=== PATIENT | male | born 1965 | race Caucasian/White ===

== ENCOUNTER 2017-06-27 07:00 | Day surgery (SDC) | payer OTHER ==
[2017-06-26 08:24] VITALS: BMI 32.8
--- NOTE | 2017-06-26 16:06 | HP ---
Admitting History and Physical - Admission Chief Complaint: Enlarged Neck Nodes History of Present Illness: 52 yo male with 2 month hx of multiple enlarged neck nodes, prior FNA biopsies inconclusive for diagnosis, though highly suspicious for Large Cell Lymphoma now for excisional biopsy History Source: Patient Limitations to Obtaining History: No Limitations - Past Medical History ENT: Yes: Other (adenopathy) - Past Surgical History Past Surgical History: Yes: None - Smoking History Smoking history: Current some day smoker Have you smoked in the past 12 months: Yes Aproximately how many cigarettes per day: 2 - Alcohol/Substance Use Hx Alcohol Use: Yes ("cutting down to a couple of beers a day) Home Medications - Allergies Allergies/Adverse Reactions: Allergies Allergy/AdvReac Type Severity Reaction Status Date / Time No Known Allergies Allergy Verified 06/26/17 08:24 - Home Medications Home Medications: Ambulatory Orders Ergocalciferol (Vitamin D2) [Vitamin D2] 2,000 unit PO DAILY 06/26/17 Review of Systems - Review of Systems Constitutional: reports: No Symptoms Eyes: reports: No Symptoms HENT: reports: No Symptoms Neck: reports: Lumps Cardiovascular: reports: No Symptoms Respiratory: reports: No Symptoms Gastrointestinal: reports: No Symptoms Neurological: reports: No Symptoms Physical Examination Constitutional: Yes: Well Nourished, No Distress Eyes: Yes: WNL HENT: Yes: WNL Neck: Yes: Lymphadenopathy Respiratory: Yes: Regular Musculoskeletal: Yes: WNL Neurological: Yes: Cran Nerves II-XII Intact Imaging - Results Cat Scan: Report Reviewed (Multiple levels of enlarged LNs with necrosis), Image Reviewed Problem List - Problems (1) Localized enlarged lymph nodes Assessment/Plan: Pt for excisional biopy of enlarged neck LN Code(s): R59.0 - LOCALIZED ENLARGED LYMPH NODES Assessment/Plan To OR for Lymph node biopsy
--- NOTE | 2017-06-27 07:54 | HP ---
History & Physical Update - History History: No Change - Physical Physical: No Change - Assessment Assessment: No Change - Plan Plan: No Change
[2017-06-27] MEDS ORDERED: LIDOCAINE HCL 0.5% EPINEPHRINE 1:200,000 50 ML VIAL IJ ONE (07:58)
[2017-06-27] MEDS ORDERED: MIDAZOLAM HCL 2 MG/2 ML SINGLE DOSE VIAL ONE ×3 (08:04→08:10)
[2017-06-27] MEDS ORDERED: SUCCINYLCHOLINE CHLORIDE 200 MG/10 ML VIAL ONE (08:09)
[2017-06-27] MEDS ORDERED: PROPOFOL 20 ML ONE (08:09)
[2017-06-27] MEDS ORDERED: ONDANSETRON 4 MG/2 ML VIAL IVPUSH PRN (08:28)
[2017-06-27] MEDS ORDERED: ACETAMINOPHEN 325 MG TABLET (FP) PO PRN (08:28)
[2017-06-27] MEDS ORDERED: PROMETHAZINE HCL 25 MG/1 ML VIAL IVPUSH PRN (08:28)
[2017-06-27] MEDS ORDERED: hydrALAZINE HCL 20 MG/ML VIAL ONE (08:56)
[2017-06-27 09:37] VITALS: TEMP 98.5
[2017-06-27 11:20] VITALS: BP 136/84; PULSE 92
[2017-06-27] MEDS ORDERED: hydrALAZINE HCL 20 MG/ML VIAL IVPUSH ONE (11:59)
--- NOTE | 2017-06-27 13:37 | OP ---
DATE OF OPERATION: 06/27/2017 PREOPERATIVE DIAGNOSES: Multiple enlarged neck lymph nodes. POSTOPERATIVE DIAGNOSES: Multiple enlarged neck lymph nodes. PROCEDURE: Excisional lymph node biopsy of the neck. ANESTHESIA: MAC with local. Dr. Bina Bonilla. FINDINGS: Multiple matted nodes with necrosis. INDICATION: The patient is a 52-year-old male with a 6-week history of multiple enlarged necrotic matted nodes throughout all compartments of his neck. Attempts at fine needle aspiration have been diagnostic with the need of more tissue. Patient now presents for excisional biopsy. Risks were thoroughly discussed and a lymph node in the posterior neck was chosen as the most superficial and accessible. PROCEDURE: After obtaining informed consent patient was brought to the operating room and placed on the operating room table in the supine position, after placement of anesthesia monitoring IV sedation was given. A local was injected after prepping the neck and identifying the lymph node region. After allowing time to make anesthesia take affect a #15 blade was used to make an incision over the lymph nodes in the posterior mid triangle. Dissection was carried down through soft tissue. Significant fibrosis was encountered in the deeper dermis. A matted group of lymph nodes were identified. As attempted isolation of a complete lymph node was performed the node was quite necrotic and soft. Multiple portions of tissue were removed via sharp dissection piecemeal and sent to the laboratory. This was sent fresh to rule out likely lymphoma. Wound was then closed with a 4-0 deep chromic stitch and closed by 4-0 nylon running suture. A compression dressing was placed. The patient then was awoke from anesthesia and transferred to recovery room awake, alert in stable condition. Yenni [id number]
--- NOTE | 2017-06-30 18:22 | PATH ---
Surgical Pathology Report Patient Name: BRADEN ZALDIVAR [facility]. Rec. #: [id number] /Age/Gender: 1965 (Age: 52) / M Account: [id number] Location: [facility] SURGICAL Taken: 06/27/2017 Received: 06/27/2017 Reported: 06/30/2017 Physicians: Humza Henry M.D. Specimen(s) Received LEFT NECK LYMPH NODE Clinical History Enlarged lymph nodes. Prior FNA with lymphoproliferative disorder enlarged B cells, rule out lymphoma. Intraoperative Consult Diagnosis Left neck lymph node, touch prep: Scant lymphoid cells present. Dr. Sanders, June 27, 2017 Final Diagnosis LYMPH NODE, LEFT NECK, EXCISION: LARGE B-CELL LYMPHOMA WITH AGGRESSIVE FEATURES, WITH EXTENSIVE NECROSIS (SEE COMMENT) Comment: Sections reveal lymphoid tissue with replacement of the normal lymphoid population by a proliferation of large neoplastic cells, with extensive areas of necrosis. Flow cytometry performed and interpreted at [place], [place] ([id number]) had to be canceled due to low cell viability. Hematopathology consultation with immunohistochemistry by Dr. Maxim Cota at [place], [place] ([id number]) shows the neoplastic cells to demonstrate B cell origin, with coexpression of CD20 (focal), PAX-5, BCL-2 (dim) and CD10. The cells also stain for CD79a, with focal dim positivity of undetermined significance (cannot rule out artifact) with TdT. Ki67 shows a very high proliferative rate (greater than 90%). The immunophenotype is consistent with germinal center cell (GCC) origin of the neoplasm. The neoplasm has a very high proliferative rate, which may be associated with more aggressive clinical behavior. Additional FISH studies to rule out "double-hit" lymphoma are pending, and a report will follow. This case was discussed with Dr. Henry on June 30, 2017. Electronically Signed Jake Sanders M.D. 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 The BCL6 (3q27) rearrangement is not detected. The IGH/BCL2 t(14;18) translocation is not detected. Comment: One copy of BCL6(3q27) is seen in 30% of cells. Three copies of BCL2(18q21) are seen in 40% of cells. Dony Lopez M.D. Gross Description The specimen is received fresh labeled "biopsy of lymph node left neck" and is 3 separate pieces of jordan tissue measuring 1.2 x 0.6 x 0.4 cm, 1.0 x 0.7 x 0.3 cm, and 0.8 x 0.4 x 0.3 cm. Touch preps are prepared. After examination of the touch preps, Dr. Henry indicated that no additional tissue could be obtained. A outside sales representative portion is submitted for flow cytometry. All of the remaining tissue is submitted in one cassette for permanent section. [facility]/06/27/2017 [facility]06/27/2017
== END 2017-06-27 11:10 | disposition home or self-care (01) ==
LOC: JASU-SURG 07:00
PROVIDERS: ATTEND Otolaryngology
PROC: 07B10ZX Excision of Right Neck Lymphatic, Open Approach, Diagnostic (ICD-10-PCS; principal; 2017-06-27 08:00)
DX: R59.0 Localized enlarged lymph nodes (principal)
CPT/HCPCS: 88305-TC; 88329; 94760

== ENCOUNTER 2017-08-31 13:20 | Inpatient (IN) | payer OTHER ==
[2017-08-31] MEDS ORDERED: SODIUM CHLORIDE 1,000 ML IV STA ×2 (14:39→20:31)
--- NOTE | 2017-08-31 15:25 | PDOC ---
History of Present Illness <Kathia Desai - Last Filed: 08/31/17 19:23> - General History Source: Patient Exam Limitations: No Limitations - History of Present Illness Initial Comments: 08/31/17 15:19 52 y.o. M with pmhy of HTN and nonhodgkins lymphoma presenting with hypotension. Patient was recently diagnosed in June with NHL and was in the hospital at [facility] for 19 days for chemotherapy. Patient was discharged on August 28. Visiting nurse services came by today and noted his BP to be 66/47 with a HR of 101. Patient was sent to the ER by Dr. Tyson, his oncologist. Patient states for the past few days he has occasional episodes of lightheadedness when he stands up or walks long distances. Patient denies fever, chills, chest pain, shortness of breath, n/v/d/c, abdominal pain, dysuria, hematuria. PSH- denies all- nkda sh- denies PCP- Dr. Tyson <Jevon Steele - Last Filed: 09/01/17 07:09> - General Chief Complaint: Blood Pressure Problem Stated Complaint: LOW BP Time Seen by Provider: 08/31/17 14:10 Past History <Kathia Desai - Last Filed: 08/31/17 19:23> - Past Medical History Anemia: No Asthma: No Cancer: No Cardiac Disorders: No CVA: No COPD: No CHF: No Dementia: No Diabetes: No GI Disorders: No Disorders: No HTN: Yes Hypercholesterolemia: No Liver Disease: No Seizures: No Thyroid Disease: No Other medical history: LYMPHOMA - Immunization History Immunization Up to Date: Yes - Suicide/Smoking/Psychosocial Hx Smoking History: Former smoker Have you smoked in the past 12 months: Yes Number of Cigarettes Smoked Daily: 2 If you are a former smoker, when did you quit?: 1YR Information on smoking cessation initiated: No Hx Alcohol Use: No Drug/Substance Use Hx: No Substance Use Type: None <Jevon Steele - Last Filed: 09/01/17 07:09> - Past Medical History Allergies/Adverse Reactions: Allergies Allergy/AdvReac Type Severity Reaction Status Date / Time No Known Allergies Allergy Verified 08/31/17 13:29 Home Medications: Ambulatory Orders Allopurinol 300 mg PO DAILY 08/31/17 Docusate Sodium [Colace -] 100 mg PO TID 08/31/17 Heparin - 5,000 unit SQ Q8H-IV #1 vial 08/31/17 Levofloxacin [Levaquin] 500 mg PO DAILY 08/31/17 Loratadine 10 mg PO DAILY 08/31/17 Oxycodone HCl 5 mg PO QID PRN 08/31/17 Pantoprazole Sodium 40 mg PO DAILY 08/31/17 Piperacillin Sodium/Tazobactam [Piperacil-Tazobact 4.5 gm Vial] 4.5 gm IV Q6H Sodium Chloride [Normal Saline -] 1,000 ml IV ASDIR #1 bag 08/31/17 Sulfamethoxazole/Trimethoprim [Sulfamethoxazole-Tmp Ds Tablet] 1 each PO ASDIR 08/31/17 Tbo-Filgrastim [Granix] 480 mcg SQ ASDIR 08/31/17 Valacyclovir HCl [Valtrex -] 500 mg PO BID 08/31/17 Review of Systems - Review of Systems Able to Perform ROS?: Yes Comments:: 08/31/17 15:25 GENERAL/CONSTITUTIONAL: No fever or chills. No weakness. HEAD, EYES, EARS, NOSE AND THROAT: No change in vision. No ear pain or discharge. No sore throat. CARDIOVASCULAR: No chest pain or shortness of breath RESPIRATORY: No cough, wheezing, or hemoptysis. GASTROINTESTINAL: No nausea, vomiting, diarrhea or constipation. GENITOURINARY: No dysuria, frequency, or change in urination. MUSCULOSKELETAL: No joint or muscle swelling or pain. No neck or back pain. SKIN: No rash NEUROLOGIC: No headache, vertigo, loss of consciousness, or change in strength/ sensation. +lightheadedness ENDOCRINE: No increased thirst. No abnormal weight change HEMATOLOGIC/LYMPHATIC: No anemia, easy bleeding, or history of blood clots. ALLERGIC/IMMUNOLOGIC: No hives or skin allergy. <Jevon Steele - Last Filed: 09/01/17 07:09> *Physical Exam - Vital Signs Last Vital Signs Temp Pulse Resp BP Pulse Ox 98.0 F 92 H 18 101/69 100 08/31/17 13:29 08/31/17 14:46 08/31/17 14:46 08/31/17 14:46 08/31/17 14:46 <Kathia Desai - Last Filed: 08/31/17 19:23> - Vital Signs Last Vital Signs Temp Pulse Resp BP Pulse Ox 98.0 F 92 H 18 101/69 100 08/31/17 13:29 08/31/17 14:46 08/31/17 14:46 08/31/17 14:46 08/31/17 14:46 - Physical Exam Comments: 08/31/17 15:25 GENERAL: Awake, alert, and fully oriented, in no acute distress HEAD: No signs of trauma, normocephalic, atraumatic EYES: PERRLA, EOMI, sclera anicteric, conjunctiva clear ENT: Auricles normal inspection, hearing grossly normal, nares patent, oropharynx clear without exudates. Moist mucosa NECK: Normal ROM, supple, no lymphadenopathy, JVD, or masses LUNGS: No distress, speaks full sentences, clear to auscultation bilaterally HEART: Regular rate and rhythm, normal S1 and S2, no murmurs, rubs or gallops, peripheral pulses normal and equal bilaterally. ABDOMEN: Soft, nontender, normoactive bowel sounds. No guarding, no rebound. No masses EXTREMITIES: Normal inspection, Normal range of motion, no edema. No clubbing or cyanosis. NEUROLOGICAL: Cranial nerves II through XII grossly intact. Normal speech, normal gait, no focal sensorimotor deficits SKIN: Warm, Dry, normal turgor, no rashes or lesions noted. <Jevon Steele - Last Filed: 09/01/17 07:09> ED Treatment Course - LABORATORY CBC & Chemistry Diagram: 08/31/17 14:52 08/31/17 14:52 - ADDITIONAL ORDERS Additional order review: Laboratory Results 08/31/17 08/31/17 08/31/17 16:52 16:52 16:52 PT with INR 12.30 H INR 1.09 PTT (Actin FS) 29.1 Sodium Potassium Chloride Carbon Dioxide Anion Gap BUN Creatinine Creat Clearance w eGFR Random Glucose Lactic Acid 1.5 Calcium Total Bilirubin AST ALT Alkaline Phosphatase Creatine Kinase Troponin I Total Protein Albumin Urine Color Straw Urine Appearance Clear Urine pH 5.0 Urine Protein Negative Urine Glucose (UA) 1+ H Urine Ketones Negative Urine Blood Negative Urine Nitrite Negative Urine Bilirubin Negative Urine Urobilinogen Negative 08/31/17 08/31/17 14:52 14:52 PT with INR INR PTT (Actin FS) Sodium 134 L Potassium 4.6 Chloride 97 L Carbon Dioxide 27 Anion Gap 10 BUN 39 H Creatinine 2.7 H Creat Clearance w eGFR 25.14 Random Glucose 100 Lactic Acid Calcium 9.0 Total Bilirubin 0.4 AST 34 ALT 26 Alkaline Phosphatase 108 Creatine Kinase 98 Troponin I < 0.02 Total Protein 6.9 Albumin 3.2 L Urine Color Urine Appearance Urine pH Urine Protein Urine Glucose (UA) Urine Ketones Urine Blood Urine Nitrite Urine Bilirubin Urine Urobilinogen 08/31/17 14:52 RBC 4.31 MCV 88.9 MCHC 34.2 RDW 12.5 MPV 9.7 Neutrophils % No Result Required. Lymphocytes % No Result Required. - Medications Given in the ED: ED Medications Discontinued Medications Generic Name Dose Route Start Last Admin Trade Name Freq PRN Reason Stop Dose Admin Sodium Chloride 1,000 mls @ 1,000 mls/hr 08/31/17 14:39 08/31/17 15:11 Normal Saline - IV 08/31/17 15:38 1,000 mls/hr ASDIR STA Administration Vancomycin HCl 1,000 mg 08/31/17 16:46 08/31/17 17:40 Vancomycin (Pre-Docked) IVPB 08/31/17 16:47 1,000 mg ONCE ONE Administration Protocol <Kathia Desai - Last Filed: 08/31/17 19:23> - LABORATORY CBC & Chemistry Diagram: 08/31/17 14:52 08/31/17 14:52 <Jevon Steele - Last Filed: 09/01/17 07:09> Medical Decision Making - Medical Decision Making 08/31/17 15:25 52 y.o. M with pmh of htn and NHL presenting with hypotension Given hx/pe, CBC, CMP, ekg, troponin, IVF (NS) 08/31/17 16:57 WBC- 23 Creatinine-2.[address] Tyson. Dr. Tyson concerned for acute infection. Patient to undergo cxr, ua, ucx, bcx, vancomycin and zosyn. 08/31/17 17:29 Patient wants to be transferred to [facility] for care. Call placed to Dr. Tyson. ([phone]) Awaiting call back 08/31/17 17:[address] Desai, awaiting transfer acceptance 08/31/17 19:03 Patient signed out to Dr. Judd <Jevon Steele - Last Filed: 09/01/17 07:09> *DC/Admit/Observation/Transfer - Discharge Dispostion Admit: Yes <Kathia Desai - Last Filed: 08/31/17 19:23> <Jevon Steele - Last Filed: 09/01/17 07:09> Diagnosis at time of Disposition: Sepsis Qualifiers: Sepsis type: sepsis due to unspecified organism Qualified Code(s): A41.9 - Sepsis, unspecified organism - Discharge Dispostion Disposition: TRANSFER ACUTE CARE/OTHER HOSP Condition at time of disposition: Guarded
[2017-08-31 15:28] LABS: MCH 30.4 pg (25.7-33.7); MCHC 34.2 g/dl (32.0-35.9); MEAN CELL VOLUME 88.9 fl (80-96); MEAN PLT VOLUME 9.7 fl (7.5-11.1); PLATELET COUNT 140 K/MM3 (134-434); RDW 12.5 % (11.9-15.9); WHITE BLOOD COUNT 23.2 K/mm3 (4.0-10.0)
[2017-08-31 15:40] LABS: ALBUMIN 3.2 g/dl (3.4-5.0); ANION GAP 10 (8-16); BILIRUBIN,TOTAL 0.4 mg/dL (0.2-1.0); CO2 27 mmol/L (21-32); CREATININE 2.7 mg/dL (0.7-1.3); GLUCOSE,RANDOM 100 mg/dL (74-106); SGPT/ALT 26 U/L (12-78)
[2017-08-31 15:41] LABS: ALK PHOS 108 U/L (45-117); TOT PROT 6.9 g/dl (6.4-8.2); TROPONIN I < 0.02 ng/ml (0.00-0.05)
[2017-08-31 15:43] LABS: SGOT/AST 34 U/L (15-37)
[2017-08-31 15:44] LABS: CPK 98 IU/L (39-308)
--- NOTE | 2017-08-31 15:49 | PDOC ---
Attending Attestation - HPI HPI: 08/31/17 15:49 The patient is a 52 year old M with recently diagnosed with lymphoma. The patient is just out of the hospital after a 19 day admission in [facility] , here today with c/os of low BP. Patient is currently taking losartan 100mg and hydrochlorothiazide 25mg . Patient notes while in the hospital having continuing low BP reading around 100/60. Today the patients visiting nurse notes his BP being 66/46 with a HR 101. He arrives eating and drinking okay and with complaints of lightheadedness. He notes both intentional and unintentional weight loss of about 40 pounds per the past year after being dx with HTN. He denies any recent fevers, chills, headache or dizziness. He denies any recent nausea, vomit, diarrhea or constipation. He denies any recent chest pain or shortness of breath. He denies any recent dysuria, frequency, urgency or hematuria. [phone] Oncologist 08/31/17 15:50 - Physicial Exam PE: 08/31/17 15:49 GENERAL: Awake, alert, and fully oriented, in no acute distress HEAD: No signs of trauma EYES: PERRLA, EOMI, sclera anicteric, conjunctiva clear ENT: Auricles normal inspection, hearing grossly normal, nares patent, Moist mucosa NECK: Normal ROM, supple, JVD, or masses LUNGS: Breath sounds equal, clear to auscultation bilaterally. No wheezes, and no crackles HEART: Regular rate and rhythm, normal S1 and S2, no murmurs, rubs or gallops ABDOMEN: Soft, nontender, normoactive bowel sounds. No guarding, no rebound. No masses EXTREMITIES: Normal range of motion, no edema. No clubbing or cyanosis. No cords, erythema, or tenderness. 2+DP/PT pulses. NEUROLOGICAL: Normal speech, normal gait, moves all extremities equally. Speech clear. SKIN: Warm, Dry, normal turgor, no rashes or lesions noted. 08/31/17 15:50 Documentation prepared by Gio Osorio, acting as medical office technician for Kathia Desai MD. <Gio Osorio - Last Filed: 08/31/17 15:50> - Resident Resident Name: Jevon Steele - ED Attending Attestation I have performed the following: I have examined & evaluated the patient, The case was reviewed & discussed with the resident, I agree w/resident's findings & plan, Exceptions are as noted - HPI HPI: 08/31/17 15:46 - Physicial Exam PE: 08/31/17 15:48 . - Medical Decision Making 08/31/17 15:48 52 yo NHL, hypertension s/p chemo dc 'd 19 days ago, with low bp. differential: dehydration, anemia, electorlyte abnormality, infection although pt afebrile. vimal tolliver dc bp medication, labs iv hydration reassess. will d/w pt oncologist. 08/31/17 17:24pt with elevated wbc. d/w his oncologist dr. wise would like pt to be admitted r/o infection. margaretho jass given. possible source picc line. would like pt transfered to [facility], . he is calling transfer center at [phone] -[facility] STAT <Kathia Desai - Last Filed: 08/31/17 19:23>
[2017-08-31] MEDS ORDERED: VANCOMYCIN 1 GRAM (PRE-DOCKED) 1,000 MG/250 ML BAG IVPB ONE (16:46)
[2017-08-31] MEDS ORDERED: PIPERACILLIN/TAZOB 4.5 GM/100 ML PRE-DOCKED IVPB ONE (16:46)
[2017-08-31 17:15] LABS: PLATELET ESTIMATE ADEQUATE (NORMAL); TOTAL CELLS COUNTED 100
[2017-08-31 17:15] LABS: INR 1.09 (0.82-1.09); PROTHROMBIN TIME (PATIENT) 12.3 SEC (9.98-11.88)
[2017-08-31 17:16] LABS: METAMYELOCYTE 6 % (0-2); MYELOCYTE 10 % (0-2); NUCLEATED RED BLOOD CELL 1 % (0-0); PROMYELOCYTE 4 % (0-2); REACTIVE LYMPHOCYTES 4 % (0-80)
[2017-08-31 17:17] LABS: ACTIVATED PTT 29.1 SECONDS (26.9-34.4)
[2017-08-31] MEDS ORDERED: VANCOMYCIN 1 GRAM (PRE-DOCKED) 250 ML IVPB ONE (17:32)
[2017-08-31] MEDS ORDERED: PIPERACILLIN/TAZOB 4.5 GM 100 ML IVPB ONE (17:32)
--- NOTE | 2017-08-31 19:05 | PDOC ---
*Physical Exam - Vital Signs Last Vital Signs Temp Pulse Resp BP Pulse Ox 98.0 F 92 H 18 101/69 100 08/31/17 13:29 08/31/17 14:46 08/31/17 14:46 08/31/17 14:46 08/31/17 14:46 ED Treatment Course - LABORATORY CBC & Chemistry Diagram: 08/31/17 14:52 08/31/17 14:52 - ADDITIONAL ORDERS Additional order review: Laboratory Results 08/31/17 08/31/17 08/31/17 16:52 16:52 14:52 PT with INR 12.30 H INR 1.09 PTT (Actin FS) 29.1 Sodium Potassium Chloride Carbon Dioxide Anion Gap BUN Creatinine Creat Clearance w eGFR Random Glucose Lactic Acid 1.5 Calcium Total Bilirubin AST ALT Alkaline Phosphatase Creatine Kinase 98 Troponin I < 0.02 Total Protein Albumin 08/31/17 14:52 PT with INR INR PTT (Actin FS) Sodium 134 L Potassium 4.6 Chloride 97 L Carbon Dioxide 27 Anion Gap 10 BUN 39 H Creatinine 2.7 H Creat Clearance w eGFR 25.14 Random Glucose 100 Lactic Acid Calcium 9.0 Total Bilirubin 0.4 AST 34 ALT 26 Alkaline Phosphatase 108 Creatine Kinase Troponin I Total Protein 6.9 Albumin 3.2 L 08/31/17 14:52 RBC 4.31 MCV 88.9 MCHC 34.2 RDW 12.5 MPV 9.7 Neutrophils % No Result Required. Lymphocytes % No Result Required. - Medications Given in the ED: ED Medications Discontinued Medications Generic Name Dose Route Start Last Admin Trade Name Freq PRN Reason Stop Dose Admin Sodium Chloride 1,000 mls @ 1,000 mls/hr 08/31/17 14:39 08/31/17 15:11 Normal Saline - IV 08/31/17 15:38 1,000 mls/hr ASDIR STA Administration Vancomycin HCl 1,000 mg 08/31/17 16:46 08/31/17 17:40 Vancomycin (Pre-Docked) IVPB 08/31/17 16:47 1,000 mg ONCE ONE Administration Protocol Medical Decision Making - Medical Decision Making 08/31/17 19:06 Care taken over from Dr. Steele. *DC/Admit/Observation/Transfer Diagnosis at time of Disposition: Sepsis Qualifiers: Sepsis type: sepsis due to unspecified organism Qualified Code(s): A41.9 - Sepsis, unspecified organism; A41.9 - Sepsis, unspecified organism; A41.9 - Sepsis, unspecified organism
[2017-08-31 19:11] LABS: URINE APPEARANCE CLEAR; URINE BILIRUBIN NEGATIVE (NEGATIVE); URINE BLOOD NEGATIVE (NEGATIVE); URINE COLOR STRAW; URINE GLUCOSE (UA) 1+ (NEGATIVE); URINE KETONE NEGATIVE (NEGATIVE); URINE NITRITE NEGATIVE (NEGATIVE); URINE PROTEIN NEGATIVE (NEGATIVE); URINE UROBILINOGEN NEGATIVE mg/dL (0.2-1.0)
--- NOTE | 2017-08-31 20:31 | HP ---
CHIEF COMPLAINT:Sent by VNS for low BP PCP: Dr. Burnett [phone]-oncologist HISTORY OF PRESENT ILLNESS: 52M PMH of HTN HLD "B-Cell Lymphoma with characteristics of leukemia" per patient presents to the ED after VNS visited him today and noted his BP to be in the 66/46. His Oncologist was called and was concerned for sepsis and told him to go to the nearest emergency room. patient states he has been having some lightheadedness over the past 2 days. He also notes this morning and yesterday morning he had some gassy abdominal pain which was very bothersome and lasted for 10 minutes and went away. Patient states he was started on BP meds in may of this year prior to that he wasn't on any medications. He believes his baseline SBP is arounf 100. He believes he is on too high of a dose as he gets dizzy when walking sometimes after taking them. The patient is just out of the [facility] hospital after a 19 day admission in [facility] for inpatient chemotherapy. Patient had his first cycle there and had 5 doses total. He was also worked up with a bone marrow biopsy pet scans and brain MRI which were negative. he was told his malignancy is mostly limited to his neck. He was diagnosed due to neck fullness but was otherwise asymptomatic. Patient was diagnosed with a lymph node biopsy done from his neck. Patient is currently taking losartan 100mg and hydrochlorothiazide 25mg. He states he has had good oral intake and he believes he is hydrating himself appropriately. He notes both intentional and unintentional weight loss of about 40 pounds per the past year after being dx with HTN. He denies any recent fevers, chills, headache or dizziness. He denies any recent nausea, vomit, diarrhea or constipation. He denies any recent chest pain or shortness of breath. He denies any recent dysuria, frequency, urgency or hematuria. In the ED he was noted to have a clear CXR. NSR EKG DILAN normal lactic acid and leukocytosis. He states he believes his WBC count was 4 when he was discharged from [facility]. BP came up SBP 100 's after IVF bolus. Patient is awaiting transfer to [facility], Has been accepetd but no beds. ER course was notable for: (1) Labs CXR (2)FLuids (3)ABx Recent Travel:Denies PAST MEDICAL HISTORY:HTN HLD not on meds B-cell lymphoma with characteristics of leukemia PAST SURGICAL HISTORY:Lymphnode excision Social History: Smoking:former social smoker Alcohol:denies Drugs: denies Family History: Allergies No Known Allergies Allergy (Verified 08/31/17 13:29) HOME MEDICATIONS: Home Medications Medication Instructions Recorded Allopurinol 300 mg PO DAILY 08/31/17 Docusate Sodium [Colace -] 100 mg PO TID 08/31/17 Hydrochlorothiazide 25 mg PO DAILY 08/31/17 Levofloxacin [Levaquin] 500 mg PO DAILY 08/31/17 Loratadine 10 mg PO DAILY 08/31/17 Losartan Potassium 100 mg PO DAILY 08/31/17 Oxycodone HCl 5 mg PO QID PRN 08/31/17 Pantoprazole Sodium 40 mg PO DAILY 08/31/17 Piperacillin Sodium/Tazobactam 4.5 gm IV Q6H 08/31/17 [Piperacil-Tazobact 4.5 gm Vial] Sulfamethoxazole/Trimethoprim 1 each PO ASDIR 08/31/17 [Sulfamethoxazole-Tmp Ds Tablet] Tbo-Filgrastim [Granix] 480 mcg SQ ASDIR 08/31/17 Valacyclovir HCl [Valtrex -] 500 mg PO BID 08/31/17 REVIEW OF SYSTEMS CONSTITUTIONAL: Absent: fever, chills, diaphoresis, generalized weakness, malaise, loss of appetite, Present: 40lb weight loss some intentional some unintentional. HEENT: Absent: rhinorrhea, nasal congestion, throat pain, throat swelling, difficulty swallowing, mouth swelling, ear pain, eye pain, visual changes CARDIOVASCULAR: Absent: chest pain, syncope, palpitations, irregular heart rate, peripheral edema Present: lightheadedness RESPIRATORY: Absent: cough, shortness of breath, dyspnea with exertion, orthopnea, wheezing, stridor, hemoptysis GASTROINTESTINAL: Absent: abdominal pain, abdominal distension, nausea, vomiting, diarrhea, constipation, melena, hematochezia GENITOURINARY: Absent: dysuria, frequency, urgency, hesitancy, hematuria, flank pain, genital pain MUSCULOSKELETAL: Absent: myalgia, arthralgia, joint swelling, back pain, neck pain SKIN: Absent: rash, itching, pallor HEMATOLOGIC/IMMUNOLOGIC: Absent: easy bleeding, easy bruising, lymphadenopathy, frequent infections ENDOCRINE: Absent: unexplained weight gain, unexplained weight loss, heat intolerance, cold intolerance NEUROLOGIC: Absent: headache, focal weakness or paresthesias, dizziness, unsteady gait, seizure, mental status changes, bladder or bowel incontinence PSYCHIATRIC: Absent: anxiety, depression, suicidal or homicidal ideation, hallucinations. PHYSICAL EXAMINATION Vital Signs - 24 hr 08/31/17 08/31/17 08/31/17 13:29 14:46 20:18 Temperature 98.0 F Pulse Rate 100 H Pulse Rate [ 92 H 80 Apical] Respiratory 16 18 18 Rate Blood Pressure 79/45 Blood Pressure 101/69 125/75 [Left Arm] O2 Sat by Pulse 100 100 96 Oximetry (%) GENERAL: Awake, alert, and fully oriented, in no acute distress. HEAD: Normal with no signs of trauma. EYES: Pupils equal, round and reactive to light, extraocular movements intact EARS, NOSE, THROAT: Dry mucous membranes. NECK: Normal range of motion, supple, no JVD, patient has right sided neck lymphadenopathy/mass has been there since before biopsy. Actually is the site of biopsy. LUNGS: Breath sounds equal, clear to auscultation bilaterally. No wheezes, and no crackles. No accessory muscle use. HEART: Regular rate and rhythm, normal S1 and S2 without murmur ABDOMEN: Soft, nontender, not distended, normoactive bowel sounds, no guarding, no rebound. no masses felt MUSCULOSKELETAL: Normal range of motion at all joints. No bony deformities or tenderness. No CVA tenderness. UPPER EXTREMITIES: warm, well-perfused. No peripheral edema. LOWER EXTREMITIES: warm, well-perfused. No calf tenderness. No peripheral edema. NEUROLOGICAL: Cranial nerves II-XII intact. Normal speech. Normal gait. PSYCHIATRIC: Cooperative. Good eye contact. Appropriate mood and affect. SKIN: Warm, dry. PICC line insertion site clean dry no erythema no tenderness no fluctuance or cord like lesions. Right sided chemoport also has no tenderness erythema or underlying fluctuance Laboratory Results - last 24 hr 08/31/17 08/31/17 08/31/17 14:52 14:52 14:52 WBC 23.2 H RBC 4.31 Hgb 13.1 Hct 38.3 MCV 88.9 MCH 30.4 MCHC 34.2 RDW 12.5 Plt Count 140 MPV 9.7 Total Counted 100 Neutrophils % No Result Required. Neutrophils % (Manual) 26 L Band Neuts % (Manual) 22 H Lymphocytes % No Result Required. Lymphocytes % (Manual) 7 L Monocytes % (Manual) 21 H* Myelocytes % (Man) 10 H Promyelocytes % (Man) 4 H Nucleated RBC % 1 H Other Cell Type Platelet Estimate Adequate PT with INR INR PTT (Actin FS) Sodium 134 L Potassium 4.6 Chloride 97 L Carbon Dioxide 27 Anion Gap 10 BUN 39 H Creatinine 2.7 H Creat Clearance w eGFR 25.14 Random Glucose 100 Lactic Acid Calcium 9.0 Total Bilirubin 0.4 AST 34 ALT 26 Alkaline Phosphatase 108 Creatine Kinase 98 Troponin I < 0.02 Total Protein 6.9 Albumin 3.2 L Urine Color Urine Appearance Urine pH Urine Protein Urine Glucose (UA) Urine Ketones Urine Blood Urine Nitrite Urine Bilirubin Urine Urobilinogen 08/31/17 08/31/17 08/31/17 16:52 16:52 16:52 WBC RBC Hgb Hct MCV MCH MCHC RDW Plt Count MPV Total Counted Neutrophils % Neutrophils % (Manual) Band Neuts % (Manual) Lymphocytes % Lymphocytes % (Manual) Monocytes % (Manual) Myelocytes % (Man) Promyelocytes % (Man) Nucleated RBC % Other Cell Type Platelet Estimate PT with INR 12.30 H INR 1.09 PTT (Actin FS) 29.1 Sodium Potassium Chloride Carbon Dioxide Anion Gap BUN Creatinine Creat Clearance w eGFR Random Glucose Lactic Acid 1.5 Calcium Total Bilirubin AST ALT Alkaline Phosphatase Creatine Kinase Troponin I Total Protein Albumin Urine Color Straw Urine Appearance Clear Urine pH 5.0 Urine Protein Negative Urine Glucose (UA) 1+ H Urine Ketones Negative Urine Blood Negative Urine Nitrite Negative Urine Bilirubin Negative Urine Urobilinogen Negative CXR: Clear. No acute pathology. Lines in place EKG: NSR no ST changes normal axis ASSESSMENT/PLAN: 52M with history of HTN HLD and lymphoma/leukemia presents to the ED with hypotension found to have leukocytosis and DILAN concern for sepsis. Patient could also have underlying tumor lysis syndrome. symptomatic hypotension: patient could be hypotensive from volume depletion as he is dry and hyponatremic. Given his leukocytosis patient could also be from sepsis. Admit to med/surg BP improved with IVF continue IVF bolus then maintenance Strict I/Os Sepsis/leukocytosis/Bandemia: Unknown source at this time could be PICC or chemoport but does not seem like it on physical exam f/u blood cultures f/u UCx fluid resuscitation ID consult given Vanco/zosyn BY ED Trend CBC Acute kidney injury:Patient denies a history of CKD. Likely from pre-renal causes secondary to poor flow to the kidney from sepsis vs volume depletion. tumor lysis syndrome unlikely as patient does not have hyperkalmeia hypocalcemia lactic acidosis and CPK is WNL Will check uric acid phosphate and LDH continue allopurinol Continue IVF recheck BMP Avoid nephrotoxic drugs renally dose all meds Hold losartan and HCTZ consider renal ultrasound/renal consult of does not improve B Cell Lymphoma/leukemia: Pending transfer to [facility] per patient and PMD/Oncologist's request recently completed first cycle of chemotherapy if stays will consider heme/onc consult Patient on levaquin bactrim and valtrex will hold until ID sees patient. no longer on granix continue allopurinol HTN: Hold losartan and HCTZ will need meds adjusted as he gets lightheadedness when ambulating after taking them most days HLD: Not on meds outpatient follow up constipation: Continue stool softeners FEN: NS 1 liter bolus then NS @ 125ml/hr hyponatremia Sodium controlled diet PPx: HSQ/SCDs/Ambulate Protonix PO Patient is ambulating and does not need PT consult Transfer to [facility] when bed available-likely tomorrow AM per transfer center. Case discussed with attending Dr. Tanner Visit type - Emergency Visit Emergency Visit: Yes Care time: The patient presented to the Emergency Department on the above date and was hospitalized for further evaluation of their emergent condition. - New Patient This patient is new to me today: Yes Date on this admission: 08/31/17 - Critical Care Critical Care patient: No
[2017-08-31] MEDS ORDERED: SODIUM CHLORIDE 1,000 ML IV SCH (20:45)
[2017-08-31 21:05] VITALS: BMI 30.9
--- NOTE | 2017-08-31 21:12 | PN ---
Teaching Attending Note Name of Resident: Bautista Jimenez ATTENDING PHYSICIAN STATEMENT I saw and evaluated the patient. I reviewed the resident's note and discussed the case with the resident. I agree with the resident's findings and plan as documented. SUBJECTIVE: 52 year old male with history of B cell lymphoma brought for evaluation of hypotension registered by aide at home. Diagnosed in 07/[address] => negative PET scan , BMB and LP => pcath right chest => chemotherapy x 9 treatments ( does not recall what regimen ) , last treatment 1 week ago . Denies fever, chills, cough , headache, mouth sores, oral thrush. Reports decreased po intake, decreased urination . Compliant with medication regimen ( valtrex , allopurinol ) Gets dizzy after taking his usual dose of losartan . 40 LB weight loss x 6 month Current Medications Generic Name Dose Route Start Last Admin Trade Name Freq PRN Reason Stop Dose Admin Allopurinol 300 mg 09/01/17 10:00 Zyloprim - PO DAILY [place] Docusate Sodium 100 mg 08/31/17 22:00 Colace - PO TID [place] Heparin Sodium (Porcine) 5,000 unit 08/31/17 22:00 Heparin - SQ TID [place] Sodium Chloride 1,000 mls @ 125 mls/hr 08/31/17 20:45 Normal Saline - IV ASDIR [place] Pantoprazole Sodium 40 mg 09/01/17 10:00 Protonix - PO DAILY [place] OBJECTIVE: Vital Signs Temperature 97.6 F 08/31/17 21:05 Pulse Rate 90 08/31/17 21:05 Respiratory Rate 18 08/31/17 21:05 Blood Pressure 114/69 08/31/17 21:05 O2 Sat by Pulse Oximetry (%) 98 08/31/17 21:05 GENERAL/CONSTITUTIONAL: No fever or chills. No weakness. HEAD, EYES, EARS, NOSE AND THROAT: No change in vision. No ear pain or discharge. No sore throat. CARDIOVASCULAR: No chest pain or shortness of breath RESPIRATORY: No cough, wheezing, or hemoptysis. GASTROINTESTINAL: No nausea, vomiting, diarrhea or constipation. GENITOURINARY: No dysuria, frequency, or change in urination. MUSCULOSKELETAL: No joint or muscle swelling or pain. No neck or back pain. R chwst wall p cath, no edema, no collection no drainage SKIN: No rash NEUROLOGIC: No headache, vertigo, loss of consciousness, or change in strength/ sensation. +lightheadedness ENDOCRINE: No increased thirst. No abnormal weight change HEMATOLOGIC/LYMPHATIC: No anemia, easy bleeding, or history of blood clots. ALLERGIC/IMMUNOLOGIC: No hives or skin allergy. CMP Sodium 134 mmol/L (136-145) L 08/31/17 14:52 Potassium 4.6 mmol/L (3.5-5.1) 08/31/17 14:52 Chloride 97 mmol/L (98-107) L 08/31/17 14:52 Carbon Dioxide 27 mmol/L (21-32) 08/31/17 14:52 Anion Gap 10 (8-16) 08/31/17 14:52 BUN 39 mg/dL (7-18) H 08/31/17 14:52 Creatinine 2.7 mg/dL (0.7-1.3) H 08/31/17 14:52 Creat Clearance w eGFR 25.14 (>60) 08/31/17 14:52 Random Glucose 100 mg/dL (74-106) 08/31/17 14:52 Lactic Acid 1.5 mmol/L (0.4-2.0) 08/31/17 16:52 Calcium 9.0 mg/dL (8.5-10.1) 08/31/17 14:52 Total Bilirubin 0.4 mg/dL (0.2-1.0) 08/31/17 14:52 AST 34 U/L (15-37) 08/31/17 14:52 ALT 26 U/L (12-78) 08/31/17 14:52 Alkaline Phosphatase 108 U/L (45-117) 08/31/17 14:52 Creatine Kinase 98 IU/L (39-308) 08/31/17 14:52 Troponin I < 0.02 ng/ml (0.00-0.05) 08/31/17 14:52 Total Protein 6.9 g/dl (6.4-8.2) 08/31/17 14:52 Albumin 3.2 g/dl (3.4-5.0) L 08/31/17 14:52 CBC, BMP 08/31/17 14:52 08/31/17 14:52 Urine Test Results Urine Color Straw 08/31/17 16:52 Urine Appearance Clear 08/31/17 16:52 Urine pH 5.0 (5.0-8.0) 08/31/17 16:52 Urine Protein Negative (NEGATIVE) 08/31/17 16:52 Urine Glucose (UA) 1+ (NEGATIVE) H 08/31/17 16:52 Urine Ketones Negative (NEGATIVE) 08/31/17 16:52 Urine Blood Negative (NEGATIVE) 08/31/17 16:52 Urine Nitrite Negative (NEGATIVE) 08/31/17 16:52 Urine Bilirubin Negative (NEGATIVE) 08/31/17 16:52 CXR NAPD ASSESSMENT 52 year old with B cell lymphoma s/p recent chemotherapy presenting with hypertension, acute renal failure and leukocytosis. No other complaints. No source of infection. Unlikely sepsis . Risk for tumor lysis . PLAN - Hydrate , IVF 125/hr - monitor creatinine, repeat cbc in am - PHOS , LDH, URIC ACID stat - hold antibiotics ( vanco/zosyn given in ED ) - c/w allopurinol - c/w HSV PPX transfer was initiated to [facility] under care of Dr Tyson. bed should be available in AM
[2017-08-31] MEDS ORDERED: DOCUSATE SODIUM 100 MG CAPSULE (FP) PO SCH (22:00)
[2017-08-31] MEDS ORDERED: HEPARIN NA (PORCINE) 5,000 UNITS/ML 1ML VIAL SQ SCH (22:00)
[2017-08-31 22:43] LABS: URINE LEUK ESTERASE Negative (NEGATIVE)
[2017-08-31 22:52] VITALS: TEMP 97.2
--- NOTE | 2017-09-01 00:01 | DS ---
Physical Exam: SUBJECTIVE: Patient seen and examined OBJECTIVE: Vital Signs Period Temp Pulse Resp BP Sys/Feldman Pulse Ox Last 24 Hr 97.2 F-97.6 F 76-90 18-18 106-125/69-77 96-98 PHYSICAL EXAM GENERAL: Awake, alert, and fully oriented, in no acute distress. HEAD: Normal with no signs of trauma. EYES: Pupils equal, round and reactive to light, extraocular movements intact EARS, NOSE, THROAT: Dry mucous membranes. NECK: Normal range of motion, supple, no JVD, patient has right sided neck lymphadenopathy/mass has been there since before biopsy. Actually is the site of biopsy. LUNGS: Breath sounds equal, clear to auscultation bilaterally. No wheezes, and no crackles. No accessory muscle use. HEART: Regular rate and rhythm, normal S1 and S2 without murmur ABDOMEN: Soft, nontender, not distended, normoactive bowel sounds, no guarding, no rebound. no masses felt MUSCULOSKELETAL: Normal range of motion at all joints. No bony deformities or tenderness. No CVA tenderness. UPPER EXTREMITIES: warm, well-perfused. No peripheral edema. LOWER EXTREMITIES: warm, well-perfused. No calf tenderness. No peripheral edema. NEUROLOGICAL: Cranial nerves II-XII intact. Normal speech. Normal gait. PSYCHIATRIC: Cooperative. Good eye contact. Appropriate mood and affect. SKIN: Warm, dry. PICC line insertion site clean dry no erythema no tenderness no fluctuance or cord like lesions. Right sided chemoport also has no tenderness erythema or underlying fluctuance LABS HOSPITAL COURSE: Date of Admission:08/31/17 Date of Discharge: 09/01/17 52M PMH of HTN HLD "B-Cell Lymphoma with characteristics of leukemia" per patient presents to the ED after VNS visited him on 08/31/17 and noted his BP to be in the 66/46. His Oncologist was called and was concerned for sepsis and told him to go to the nearest emergency room. patient states he has been having some lightheadedness over the past 2 days. He also notes this morning and yesterday morning he had some gassy abdominal pain which was very bothersome and lasted for 10 minutes and went away. Patient states he was started on BP meds in may of this year prior to that he wasn't on any medications. He believes his baseline SBP is around 100. He believes he is on too high of a dose as he gets dizzy when walking sometimes after taking them. The patient is just out of the [facility] hospital after a 19 day admission in [facility] for inpatient chemotherapy. Patient had his first cycle there and had 5 doses total. He was also worked up with a bone marrow biopsy pet scans and brain MRI which were negative. he was told his malignancy is mostly limited to his neck. He was diagnosed due to neck fullness but was otherwise asymptomatic. Patient was diagnosed with a lymph node biopsy done from his neck. Patient is currently taking losartan 100mg and hydrochlorothiazide 25mg. He states he has had good oral intake and he believes he is hydrating himself appropriately. He notes both intentional and unintentional weight loss of about 40 pounds per the past year after being dx with HTN. He denies any recent fevers, chills, headache or dizziness. He denies any recent nausea, vomit, diarrhea or constipation. He denies any recent chest pain or shortness of breath. He denies any recent dysuria, frequency, urgency or hematuria. In the ED he was noted to have a clear CXR. NSR EKG DILAN normal lactic acid and leukocytosis. Given Vanc/zosyn in ED and IVF. He states he believes his WBC count was 4 when he was discharged from [facility]. BP came up SBP 100's after IVF bolus. Patient was admitted awaiting a bed at [facility] where his doctors are now accepted for transfer as abed opened up. Minutes to complete discharge: 35 Discharge Summary Reason For Visit: SEPSIS Current Active Problems DILAN (acute kidney injury) (Acute) Hypotension (Acute) Lymphoma (Acute) Sepsis (Acute) Volume depletion (Acute) HLD (hyperlipidemia) (Chronic) HTN (hypertension) (Chronic) Localized enlarged lymph nodes (Chronic) Condition: Guarded - Instructions Diet, Activity, Other Instructions: you are being transferred to [facility] for continuation of care with you primary medical. Please continue medications as recommended by your primary team at [facility]. Do not take the blood pressure medicationsplease ask your doctors to consider adjusting your blood pressure medication doses as you get dizzy and have lightheadedness from them as the doses may be too high. you can have your doctors call the hospitalist office at [phone] to follow up on any cultures or other tests please follow up with your primary care doctor upon discharge It was a pleasure taking care of you Bautitsa Ariza M.D. Disposition: TRANSFER ACUTE CARE/OTHER HOSP - Home Medications Comprehensive Discharge Medication List: Ambulatory Orders Allopurinol 300 mg PO DAILY 08/31/17 Docusate Sodium [Colace -] 100 mg PO TID 08/31/17 Heparin - 5,000 unit SQ Q8H-IV #1 vial 08/31/17 Levofloxacin [Levaquin] 500 mg PO DAILY 08/31/17 Loratadine 10 mg PO DAILY 08/31/17 Oxycodone HCl 5 mg PO QID PRN 08/31/17 Pantoprazole Sodium 40 mg PO DAILY 08/31/17 Piperacillin Sodium/Tazobactam [Piperacil-Tazobact 4.5 gm Vial] 4.5 gm IV Q6H Sodium Chloride [Normal Saline -] 1,000 ml IV ASDIR #1 bag 08/31/17 Sulfamethoxazole/Trimethoprim [Sulfamethoxazole-Tmp Ds Tablet] 1 each PO ASDIR 08/31/17 Tbo-Filgrastim [Granix] 480 mcg SQ ASDIR 08/31/17 Valacyclovir HCl [Valtrex -] 500 mg PO BID 08/31/17 This patient is new to me today: No Emergency Visit: Yes ED Registration Date: 08/31/17 Care time: The patient presented to the Emergency Department on the above date and was hospitalized for further evaluation of their emergent condition. Critical Care patient: No - Discharge Referral Referred to [facility] No
[2017-09-01 00:56] VITALS: BP 142/72; PULSE 88
[2017-09-01] MEDS ORDERED: HEPARIN NA (PORCINE) 5,000 UNITS/ML 1ML VIAL SQ SCH (02:00)
--- NOTE | 2017-09-01 09:10 | EKG ---
Test Reason : Blood Pressure : / mmHG Vent. Rate : 088 BPM Atrial Rate : 088 BPM P-R Int : 152 ms QRS Dur : 080 ms QT Int : 362 ms P-R-T Axes : 037 011 014 degrees QTc Int : 438 ms NORMAL SINUS RHYTHM NORMAL ECG NO PREVIOUS ECGS AVAILABLE Confirmed by CADY FLYNN MD ([id number]) on 09/01/2017 9:10:37 AM Referred By: Confirmed By:CADY FLYNN MD
[2017-09-01] MEDS ORDERED: PANTOPRAZOLE 40 MG TABLET (FP) PO SCH (10:00)
[2017-09-01] MEDS ORDERED: ALLOPURINOL 300 MG TABLET (FP) PO SCH (10:00)
== END 2017-09-01 01:00 | disposition short-term general hospital (02) | DRG 872 ==
LOC: JER 13:20 → JERBED 19:23 → J6S 20:45
PROVIDERS: ADMIT Internal Medicine; ATTEND Internal Medicine
DX: A41.9 Sepsis, unspecified organism (principal); C85.90 Non-Hodgkin lymphoma, unspecified, unspecified site; E87.1 Hypo-osmolality and hyponatremia; N17.9 Acute kidney failure, unspecified; I10 Essential (primary) hypertension; Z87.891 Personal history of nicotine dependence; E78.5 Hyperlipidemia, unspecified; K59.00 Constipation, unspecified
CPT/HCPCS: 36415; 71020-TC; 80053; 81003; 82550; 83605; 84484; 85025; 85610; 85730; 87040; 87086; 93005; 93010; 99284-25